=== PATIENT | male | born 1970 | race Hispanic/Latino ===

== ENCOUNTER 2018-03-17 19:55 | Emergency (ER) | payer BC, OTHER ==
[2018-03-17] MEDS ORDERED: ASPIRIN TABLET 325 MG TAB ONE (20:10)
[2018-03-17] MEDS ORDERED: ASPIRIN TABLET 325 MG TAB PO ONE (20:16)
[2018-03-17] MEDS ORDERED: NITROGLYCERIN 0.4 MG 25 EA TAB SL PRN (20:22)
--- NOTE | 2018-03-17 20:42 | RAD ---
EXAM DESCRIPTION: Chest,1 View CLINICAL HISTORY: 48 years Male chest pain COMPARISON: None. FINDINGS: The cardiomediastinal silhouette appears unremarkable. No consolidating infiltrates or pleural effusions. No pneumothorax. IMPRESSION: No acute abnormality is identified. Electronically signed by: Adelaida Ceja MD 03/17/2018 8:41 PM CDT
--- NOTE | 2018-03-17 21:55 | ED.PDOC ---
History of Present Illness - General Chief Complaint: Chest Pain/NC Stated Complaint: chest pressure, numbness in arms Time Seen by Provider: 03/17/18 20:21 Source: patient, family Exam Limitations: no limitations - History of Present Illness Initial Comments: At approx 1500 today he was at rest when he developed chest pressure that has persisted up until arrival here. He also felt quite weak. He has never had this before. Also, since about 1100 today he has noted that his right hand is purple & swollen. Timing/Duration: 4-6 hours Severity/Quality: mild, pressure Location: substernal Chest Pain Radiation: no radiation Activities at Onset: none Prior Chest Pain/Cardiac Workup: no prior chest pain Improving Factors: nothing Worsening Factors: nothing Nitro Today/Relief: no nitro taken today Aspirin Treatment Today: 325 mg x 1, provided by ED - takes ASA at home nightly Associated Symptoms: denies symptoms - no dyspnea Allergies/Adverse Reactions: Allergies NO KNOWN ALLERGY Allergy (Unverified 02/06/14 00:03) Home Medications: Ambulatory Orders Aspirin [Aspirin EC] 81 mg PO DAILY #30 tab 02/06/14 Propranolol HCl [Inderal] 20 mg PO BID #30 tab 02/06/14 cloNAZepam [Klonopin] 0.5 mg PO BEDTIME PRN #14 tab 02/06/14 Review of Systems - Review of Systems Constitutional: States: see HPI, weakness, other - had a check up 2 weeks ago & all was well EENTM: States: no symptoms reported Respiratory: States: no symptoms reported Cardiology: States: see HPI, chest pain. Denies: edema, syncope Gastrointestinal/Abdominal: States: no symptoms reported Genitourinary: States: no symptoms reported Musculoskeletal: States: see HPI, joint swelling Skin: States: see HPI, change in color Neurological: States: no symptoms reported Endocrine: States: no symptoms reported Hematologic/Lymphatic: States: no symptoms reported, see HPI. Denies: blood clots Past Medical History (General) - Patient Medical History Hx Seizures: No Hx Stroke: No Hx Dementia: No Hx Asthma: No Hx of COPD: No Hx Cardiac Disorders: No Hx Congestive Heart Failure: No Hx Pacemaker: No Hx Hypertension: Yes Hx Thyroid Disease: No Hx Diabetes: No Hx Gastroesophageal Reflux: No Hx Renal Disease: No Hx Cancer: No Hx of HIV: No Hx Hepatitis C: No Hx MRSA: No Surgical History: other - Vaccination History Hx Tetanus, Diphtheria Vaccination: No Hx Influenza Vaccination: No Hx Pneumococcal Vaccination: No - Social History Hx Tobacco Use: No Hx Chewing Tobacco Use: No Hx Alcohol Use: Yes - occ Hx Substance Use: No Hx Substance Use Treatment: No Hx Depression: No Hx Physical Abuse: No Hx Emotional Abuse: No Hx Suspected Abuse: No - Female History Patient : No - Triage Comment ED Triage Comment: Pt reports he woke up with chest pressure and numbness and tingling down his arms. Pt reports pressure has not eased up completely, now feeling some shortness of breath. Pt does have Hx HTN. Family Medical History - Family History Mother Family History: Unknown Hx Family Hypertension: Yes Hx Cardiac Disease: No Physical Exam - Physical Exam General Appearance: Alert, Comfortable, No apparent distress Eyes, Ears, Nose, Throat Exam: normal ENT inspection Neck: full range of motion, supple, normal inspection Respiratory: lungs clear, normal breath sounds, no respiratory distress, no accessory muscle use Cardiovascular/Chest: normal peripheral pulses, regular rate, rhythm, no edema, no gallop, no JVD Peripheral Pulses: radial,right: 2+ Gastrointestinal/Abdominal: non tender, soft, no organomegaly, no pulsatile mass Extremity: normal range of motion, non-tender, normal capillary refill, other - right hand is discolored & slightly swollen Neurologic: no motor/sensory deficits, alert, normal mood/affect, oriented x 3 Skin Exam: warm/dry, cyanosis - hand Progress - Progress Progress: 03/17/18 21:55 Pain free after NTG. Overall feels better in that much of his weakness is gone. HEART score = 3. His hand exam is unchanged. He needs an US for that. I have spoken with the hospitalist at & he will go to obs for CP as well. - Results/Orders Results/Orders: d-dimer 0.52 Troponin <0.02 - EKG/XRAY/CT EKG: Sinus - NSR @ 86; nml axis, intervals, QRS, ST & T waves, no ST T wave changes XRAY: chest Xray Comments: normal - Consult/PCP Time Called: 22:04 Consult/PCP: Dr. Reinoso Consult Reason/Comments: CP & need for US to r/o DVT Departure - Departure Clinical Impression: Hand pain, right Chest pain Qualifiers: Chest pain type: precordial pain Qualified Code(s): R07.2 - Precordial pain Hypertension Qualifiers: Hypertension type: essential hypertension Qualified Code(s): I10 - Essential ( primary) hypertension Time of Disposition: 21:58 Disposition: Transfer to Hospital Condition: Fair Home Medications: Ambulatory Orders Aspirin [Aspirin EC] 81 mg PO DAILY #30 tab 02/06/14 Propranolol HCl [Inderal] 20 mg PO BID #30 tab 02/06/14 cloNAZepam [Klonopin] 0.5 mg PO BEDTIME PRN #14 tab 02/06/14
[2018-03-17] MEDS ORDERED: METOPROLOL TARTRATE INJ 5 MG/5 ML VIAL IV ONE (22:01)
[2018-03-17 23:00] VITALS: BP 134/98; TEMP 98.5; O2SAT 99
== END 2018-03-17 22:59 | disposition short-term general hospital (02) ==
LOC: ER 19:55
DX: R07.2 Precordial pain (principal); I10 Essential (primary) hypertension; R06.02 Shortness of breath; R20.0 Anesthesia of skin; Z79.82 Long term (current) use of aspirin; Z79.899 Other long term (current) drug therapy